=== PATIENT | male | born 1945 | race Caucasian/White ===

== ENCOUNTER 2018-01-10 06:51 | Inpatient (IN) | payer OTHER, MEDICARE ==
[~2018-01-10] VITALS: Ht 172.7 cm; Wt 67.5 kg
[~2018-01-10 06:51] MED LIST: ASPI81TA23 PO; ATOR80TA45 PO; HYDR25TA5 PO; LISI40TA PO; METF1000 PO; METO25TA3 PO
[2018-01-10] MEDS ORDERED: SODIUM CHLORID 0.9% 500 ML IV PRN (07:15)
[2018-01-10] MEDS ORDERED: CHLORHEXIDINE GLUCONATE 2 % 1 PACK (2 CLOTHS) TOPICAL PRN (07:15)
[2018-01-10] MEDS ORDERED: METOPROLOL TARTRATE 25 MG TAB PO PRN (07:15)
[2018-01-10] MEDS ORDERED: POVIDONE IODINE 5% (ANTISEPSIS KIT) 4 APPLICATIONS EACH NARE PRN (07:15)
[2018-01-10] MEDS: LACTATED RINGER'S 1000 ML IV PRN ×2 (08:02→13:05)
[2018-01-10 08:17] LABS: AUTOMATED NEUTROPHIL # 10.6 TH/MM3 (1.8-7.7); BASOPHIL # 0.2 TH/MM3 (0-0.2); BASOPHIL % 1.3 % (0.0-2.0); EOSINOPHIL # 0.6 TH/MM3 (0-0.4); HEMATOCRIT 38.3 % (39.0-51.0); LYMPH % 15.2 % (9.0-44.0); LYMPHOCYTE # 2.2 TH/MM3 (1.0-4.8); MEAN CELL VOLUME 88.5 FL (80.0-100.0); MEAN CORPUSCULAR HEMOGLOBIN 30.1 PG (27.0-34.0); MEAN CORPUSCULAR HGB CONC 34.1 % (32.0-36.0); MEAN PLATELET VOLUME 7.6 FL (7.0-11.0); MONO % 5.9 % (0.0-8.0); MONOCYTE # 0.9 TH/MM3 (0-0.9); NEUT % 73.6 % (16.0-70.0); PLATELET COUNT 276 TH/MM3 (150-450); RED BLOOD COUNT 4.33 MIL/MM3 (4.50-5.90); RED CELL DISTRIBUTION WIDTH 15.1 % (11.6-17.2); WHITE BLOOD COUNT 14.4 TH/MM3 (4.0-11.0)
[2018-01-10 08:22] LABS: PROTHROMBIN TIME - PATIENT 10.5 SEC (9.8-11.6)
[2018-01-10] MEDS ORDERED: PROTAMINE SULFATE 50 MG/5 ML VIAL ONE (08:24)
[2018-01-10] MEDS ORDERED: HEPARIN SODIUM - IV 10,000 UNITS/10 ML VIAL ONE (08:24)
[2018-01-10] MEDS ORDERED: THROMBIN (TOPICAL) 20,000 UNIT SPRAY KIT ONE (08:25)
[2018-01-10] MEDS ORDERED: HEPARIN-NS/PF INJ 500 ML ONE (08:25)
[2018-01-10] MEDS ORDERED: BUPIVACAINE HCL PF 0.5% 30 ML VIAL ONE (08:25)
[2018-01-10] MEDS ORDERED: ceFAZolin 2 GM PREMIX 50 ML ONE (08:25)
[2018-01-10 08:29] LABS: BICARBONATE 25.3 MEQ/L (21.0-32.0); CALCIUM 9.4 MG/DL (8.5-10.1); CREATININE 1.68 MG/DL (0.60-1.30)
--- NOTE | 2018-01-10 08:39 | HHI.HP ---
History of Present Illness Chief Complaint: B LE leg pain, PAD History of Present Illness 72 yo male with B LE leg pain, short claudication and near pain Past/Family/Social History Past Medical History CVOD DM HTN XOL PAD Past Surgical History ortho surgery Social History + tobacco Family History NC Home Medications Reported Medications Aspirin DR (Aspirin EC) 81 Mg Tabdr, 81 MG PO DAILY, TAB 0 Refills 01/07/18 Atorvastatin (Atorvastatin) 80 Mg Tab, 80 MG PO HS for Cholesterol Management, # 30 TAB 0 Refills 01/07/18 Hydrochlorothiazide (Hydrochlorothiazide) 25 Mg Tab, 25 MG PO DAILY, #30 TAB 0 Refills 01/07/18 Lisinopril (Lisinopril) 40 Mg Tab, 40 MG PO DAILY for Blood Pressure Management , #30 TAB 0 Refills 01/07/18 Metoprolol Tartrate (Metoprolol Tartrate) 25 Mg Tab, 0.5 TAB PO BID, #60 TAB 0 Refills 01/07/18 Metformin (Metformin) 1,000 Mg Tab, 1000 MG PO BIDPC for Blood Sugar Management , #60 TAB 0 Refills 01/07/18 Coded Allergies: acetaminophen (Verified Allergy, Severe, Rash, 01/10/18) Review of Systems Constitutional: DENIES: Diaphoretic episodes, Fatigue, Fever, Weight gain, Weight loss, Chills, Dizziness, Change in appetite, Night Sweats Respiratory: COMPLAINS OF: Wheezing Physical Exam Vitals/I&O Date Time Temp Pulse Resp B/P (MAP) Pulse Ox O2 Delivery O2 Flow Rate FiO2 01/10/18 08:01 97.6 81 18 146/85 (105) 100 Neuro: alert, oriented no distress HEENT: NC/AT Neck: no JVD Heart: reg rate Lungs: + wheezing Abdomen: nontender Vascular: palpable UE pulses Extremities: no C/C/E no tissue loss Laboratory Tests Test 01/10/18 07:57 White Blood Count 14.4 Red Blood Count 4.33 Hemoglobin 13.0 Hematocrit 38.3 Mean Corpuscular Volume 88.5 Mean Corpuscular Hemoglobin 30.1 Mean Corpuscular Hemoglobin Concent 34.1 Red Cell Distribution Width 15.1 Platelet Count 276 Mean Platelet Volume 7.6 Neutrophils (%) (Auto) 73.6 Lymphocytes (%) (Auto) 15.2 Monocytes (%) (Auto) 5.9 Eosinophils (%) (Auto) 4.0 Basophils (%) (Auto) 1.3 Neutrophils # (Auto) 10.6 Lymphocytes # (Auto) 2.2 Monocytes # (Auto) 0.9 Eosinophils # (Auto) 0.6 Basophils # (Auto) 0.2 CBC Comment DIFF FINAL Differential Comment Prothrombin Time 10.5 Prothromb Time International Ratio 1.0 Blood Urea Nitrogen 23 Creatinine 1.68 Random Glucose 132 Calcium Level 9.4 Sodium Level 141 Potassium Level 3.8 Chloride Level 104 Carbon Dioxide Level 25.3 Anion Gap 12 Estimat Glomerular Filtration Rate 40 CTA ([place]) reviewed Caprini VTE Risk Assessment Caprini VTE Risk Assessment: No/Low Risk (score <= 1) Caprini Risk Assessment Model Point Value = 1 Point Value = 2 Point Value = 3 Point Value = 5 Age 41-60 Minor surgery BMI > 25 kg/m2 Swollen legs Varicose veins or History of unexplained or recurrent spontaneous Oral contraceptives or hormone replacement Sepsis (< 1 month) Serious lung disease, including pneumonia (< 1 month) Abnormal pulmonary function Acute myocardial infarction Congestive heart failure (< 1 month) History of inflammatory bowel disease Medical patient at bed rest Age 61-74 Arthroscopic surgery Major open surgery (> 45 min) Laparoscopic surgery (> 45 min) Malignancy Confined to bed (> 72 hours) Immobilizing plaster cast Central venous access Age >= 75 History of VTE Family history of VTE Factor V Leiden Prothrombin [id number] Lupus anticoagulant Anticardiolipin antibodies Elevated serum homocysteine Heparin-induced thrombocytopenia Other congenital or acquired thrombophilia Stroke (< 1 month) Elective arthroplasty Hip, pelvis, or leg fracture Acute spinal cord injury (< 1 month) Prophylaxis Regimen Total Risk Factor Score Risk Level Prophylaxis Regimen 0-1 Low Early ambulation 2 Moderate Order ONE of the following: *Sequential Compression Device (SCD) *Heparin 5000 units SQ BID 3-4 Higher Order ONE of the following medications: *Heparin 5000 units SQ TID *Enoxaparin/Lovenox 40 mg SQ daily (WT < 150 kg, CrCl > 30 mL/min) *Enoxaparin/Lovenox 30 mg SQ daily (WT < 150 kg, CrCl > 10-29 mL/min) *Enoxaparin/Lovenox 30 mg SQ BID (WT < 150 kg, CrCl > 30 mL/min) AND/OR *Sequential Compression Device (SCD) 5 or more Highest Order ONE of the following medications: *Heparin 5000 units SQ TID (Preferred with Epidurals) *Enoxaparin/Lovenox 40 mg SQ daily (WT < 150 kg, CrCl > 30 mL/min) *Enoxaparin/Lovenox 30 mg SQ daily (WT < 150 kg, CrCl > 10-29 mL/min) *Enoxaparin/Lovenox 30 mg SQ BID (WT < 150 kg, CrCl > 30 mL/min) AND *Sequential Compression Device (SCD) Assessment and Plan Plan Ax-fem-fem Discharge Planning 3-4 days Son: [phone] Chase Tapia MD Jan 10, 2018 08:39
[2018-01-10] MEDS ORDERED: FAMOTIDINE 20 MG/2 ML VIAL ONE (08:50)
[2018-01-10] MEDS ORDERED: FAMOTIDINE 20 MG/2 ML VIAL IV ONE (08:52)
[2018-01-10] MEDS ORDERED: RESP: ALBUTEROL 2.5 MG/IPRATROPIUM 0.5 MG NEB (SCH) NEB ONE (08:55)
[2018-01-10] MEDS ORDERED: RESP: ALBUTEROL 2.5 MG/IPRATROPIUM 0.5 MG NEB (SCH) ONE (08:57)
--- NOTE | 2018-01-10 11:50 | HHI.PR ---
cc: Chase Tapia MD Immediate Post Op Note Procedure Date: Jan 10, 2018 Pre Op Diagnosis: PAD with short distance claudication Post Op Diagnosis: PAD with short distance claudication Surgeon: Chase Tapia Shipping Checker(s): Chase Steward Procedure: R ax-fem-fem (8mm ringed PTFE) Findings: strong Doppler signals B feet Additional Information: none Complications: none Specimen(s) removed: none Estimated blood loss: 300mL Anesthesia: General Drains: None Fluids: 2800mL IVF Urinary Output (mLs): 75 Patient to: CVICU Patient Condition: Good Implant/Devices: SEE IMPLANT LOG (if applicable) Date/Time of Procedure: SEE SURGICAL CARE RECORD Chase Tapia MD Jan 10, 2018 11:50
[2018-01-10 12:00] VITALS: BP_SYST 151; BP_SYST 156; BP_DIAS 63; BP_DIAS 68; PULSE 78; TEMP 97.5
[2018-01-10] MEDS ORDERED: ROCURONIUM INJ 50 MG/5 ML SYRINGE IV PUSH ONE (12:00)
[2018-01-10] MEDS ORDERED: ESMOLOL HCL 100 MG/10 ML VIAL IV ONE (12:00)
[2018-01-10] MEDS ORDERED: RESP: ALBUTEROL 2.5 MG/3 ML NEB (PRN) NEB (12:00)
[2018-01-10] MEDS ORDERED: NEOSTIGMINE 5 MG/5 ML SYRINGE IV PUSH ONE (12:00)
[2018-01-10] MEDS ORDERED: PHENYLEPH/NS 1000 MCG/10 ML SYR IV ONE (12:00)
[2018-01-10] MEDS ORDERED: SENNOSIDES 8.6 MG TAB PO PRN (12:00)
[2018-01-10] MEDS ORDERED: DEXAMETHASONE SOD PHOS 4 MG/ML VIAL IV ONE (12:00)
[2018-01-10] MEDS ORDERED: PROPOFOL 200 MG/20 ML AMP IV ONE (12:00)
[2018-01-10] MEDS ORDERED: ePHEDrine/NS 25 MG/5 ML SYRINGE IV ONE (12:00)
[2018-01-10] MEDS ORDERED: LIDOCAINE HCL 1% PF 5 ML SYRINGE OTHER ONE (12:00)
[2018-01-10] MEDS ORDERED: GLYCOPYRROLATE 1 MG/5 ML SYRINGE IV PUSH ONE (12:00)
[2018-01-10] MEDS ORDERED: PHENYLEPHRINE HCL 10 MG/ML VIAL IV ONE (12:00)
[2018-01-10] MEDS ORDERED: ONDANSETRON HCL 4 MG/2 ML VIAL IV ONE (12:00)
[2018-01-10] MEDS ORDERED: NORMOSOL R INJ 2,000 ML IV ONE (12:00)
[2018-01-10] MEDS ORDERED: DO NOT ADM ANY ANTICOAGULANT DRUGS PRN (12:07)
[2018-01-10] MEDS ORDERED: PILL SPLITTER OTHER PRN (12:30)
--- NOTE | 2018-01-10 12:54 | MP ---
cc: Chase Tapia MD DATE OF OPERATION: PREOPERATIVE DIAGNOSIS: Bilateral lower extremity peripheral arterial occlusive disease, short distance claudication, infrarenal aortic occlusion. POSTOPERATIVE DIAGNOSIS: Bilateral lower extremity peripheral arterial occlusive disease, short distance claudication, infrarenal aortic occlusion. PROCEDURE PERFORMED: Ax-fem, fem-fem. ATTENDING SURGEON: Chase Tapia MD [employer]ADU[employer] SURGEON: Chase Steward RN ANESTHESIA: General. INDICATIONS FOR PROCEDURE: Mr. Adams is a 72-year-old gentleman with a near aortic occlusion, occluded right iliac system and a high-grade left iliac stenosis. He was taken to the operating room for an extra anatomic vascularization. After thorough discussion of the risks and benefits was had with the patient. DESCRIPTION OF PROCEDURE: Informed consent was obtained, the patient was taken to the operating room and placed supine on the operating table. An appropriate timeout was taken to ensure the patient's identity, operative site and planned procedure. The administration of 2 grams of Ancef was initiated prior to skin incision and will be discontinued after single preoperative dose. Everyone in the room agreed. We proceeded. He was prepped from the chin to the knees. An incision was made in both the patient's groins, carried down through subcutaneous tissue with electrocautery. The common femoral artery was identified, dissected free from the circumflex, femoral all the way down to the bifurcation of the profunda and superficial femoral arteries. These were encircled with vessel loops. An incision made below the right collarbone, carried down through subcutaneous tissue with electrocautery. The axillary artery and vein were identified, and the axillary vein was retracted caudally, thereby providing adequate exposure of the axillary artery. It was encircled with a vessel loop. A tunnel was then created between the axillary incision and the groin incision, and an 8 mm ringed PTFE was passed through the tunnel. The patient was systemically heparinized until the remainder of the case. The ACT was confirmed to be greater than 250. Proximal and distal control of the axillary artery was obtained with profunda clamps, and a longitudinal arteriotomy was made with an 11 blade, extended with Jorge scissors. The graft was spatulated and sewn end-to-side with running 5-0 Prolene suture. At the completion, it was flushed and noted to be hemostatic. A [place] Softjaw was placed on the graft as the clamps were released. Proximal and distal control of the right common femoral artery was obtained with profunda clamps, and a longitudinal arteriotomy was made with an 11 blade, extended with [place] scissors. The graft was cut to appropriate length, spatulated and sewn end-to-side to the common femoral artery with a running 5-0 Prolene suture. At the completion, it was flushed and noted to be hemostatic. The clamps were reapplied and a graftotomy was made with an 11 blade, extended with Jorge scissors. An 8 mm PTFE was sewn end to side to the distal end of the ax-fem with running 5-0 Prolene suture. All the clamps were released. There was hemostasis in the groin. A subfascial tunnel was then created between the 2 groin incisions. An 8 mm ring PTFE was passed through this. Proximal and distal control of the left common femoral artery was obtained with profunda clamps, and a longitudinal arteriotomy was made with an 11 blade, extended with Jorge scissors. The graft was cut to appropriate length, spatulated and sewn end-to-side to the common femoral on the left with running 5-0 Prolene suture. At the completion, it was flushed and noted to be hemostatic. There were excellent Doppler signals in the feet. All the wounds were made hemostatic. The heparin was reversed with protamine and the wounds were infiltrated with Marcaine and closed with 2-0 Polysorb, 3-0 Polysorb and 4-0 Monocryl. Sponge and needle counts were correct at the end of the case. I was present and scrubbed for the entire procedure. MD JAGDISH Dia/SHEEBA , 12:13 PM , 12:54 PM
[2018-01-10 14:29] VITALS: O2SAT 97
[2018-01-10 15:00] VITALS: BP_SYST 130; BP_SYST 132; BP_DIAS 50; BP_DIAS 74; PULSE 78; TEMP 98
[2018-01-10 19:00] VITALS: BP_SYST 130; BP_SYST 136; BP_DIAS 48; BP_DIAS 78; PULSE 120; RESP 20; TEMP 97.9; O2SAT 94
--- NOTE | 2018-01-10 20:46 | EKG ---
Date Performed: 01/10/2018 Time Performed: 07:41:30 PTAGE: 72 years EKG: Sinus rhythm INTRAVENTRICULAR CONDUCTION DELAY ABNORMAL ECG NO PREVIOUS TRACING DOCTOR: Carlos Carrasquillo Interpretating Date/Time 01/10/2018 20:46:02
[2018-01-10] MEDS: DOCUSATE SODIUM 50 MG/SENNA 8.6 MG TAB PO SCH ×2 (21:00→21:04)
[2018-01-10] MEDS: ATORVASTATIN 40 MG TAB PO SCH (21:04)
[2018-01-10] MEDS: FAMOTIDINE 20 MG TAB PO SCH (21:05)
[2018-01-10] MEDS: METOPROLOL TARTRATE 25 MG TAB PO SCH (21:05)
[2018-01-10 22:35] VITALS: O2SAT 97
[2018-01-10 23:00] VITALS: BP_SYST 129; BP_SYST 139; BP_DIAS 57; BP_DIAS 74; PULSE 100; RESP 20; TEMP 97.9; O2SAT 98
[2018-01-10] MEDS: MORPHINE SULFATE 4 MG/ML INJ IV PUSH PRN (23:06)
[2018-01-11] VITALS (7 sets, daily range): BP systolic 106–122; BP diastolic 49–75; PULSE 80–121; RESP 18–24; TEMP 97.8–100.4; O2SAT 94–99
[2018-01-11] MEDS: MORPHINE SULFATE 4 MG/ML INJ IV PUSH PRN ×3 (04:43→20:44)
[2018-01-11 05:12] LABS: HEMATOCRIT 27.3 % (39.0-51.0); HEMOGLOBIN 9.6 GM/DL (13.0-17.0); MEAN CELL VOLUME 86.5 FL (80.0-100.0); MEAN CORPUSCULAR HEMOGLOBIN 30.4 PG (27.0-34.0); MEAN CORPUSCULAR HGB CONC 35.1 % (32.0-36.0); PLATELET COUNT 228 TH/MM3 (150-450); RED BLOOD COUNT 3.16 MIL/MM3 (4.50-5.90)
[2018-01-11 05:54] LABS: CALCIUM 7.9 MG/DL (8.5-10.1); CREATININE 1.51 MG/DL (0.60-1.30)
--- NOTE | 2018-01-11 08:50 | PD.VS.PN ---
Subjective POD #: 1 Procedure(s): ax-fem-fem Subjective/Hospital Course c/o soreness christiano in sides otherwise ok feet ok deisy po no abdominal tenderness Objective Vitals/I&O Date Time Temp Pulse Resp B/P (MAP) Pulse Ox O2 Delivery O2 Flow Rate FiO2 01/11/18 07:59 96 Nasal Cannula 2.00 01/11/18 07:00 98.5 95 18 106/56 (73) 97 115/50 (71) 01/11/18 07:00 97 Nasal Cannula 4.00 01/11/18 07:00 95 01/11/18 05:57 20 01/11/18 04:48 20 01/11/18 03:00 80 01/11/18 03:00 98.1 80 20 109/62 (78) 99 122/49 (73) 01/10/18 23:00 97.9 100 20 129/74 (92) 98 139/57 (84) 01/10/18 23:00 100 01/10/18 22:35 97 Nasal Cannula 2.00 01/10/18 19:00 120 01/10/18 19:00 94 Nasal Cannula 4.00 01/10/18 19:00 97.9 120 20 136/78 (97) 94 130/48 (75) 01/10/18 15:00 98.0 78 132/74 (93) 130/50 (76) 01/10/18 15:00 78 01/10/18 14:29 97 Nasal Cannula 4.00 01/10/18 12:00 97.5 78 151/68 (95) 156/63 (94) 01/11/18 01/11/18 01/11/18 07:00 15:00 23:00 Intake Total 600 ml Output Total 770 ml Balance -170 ml Exam: resting comfortably abdomen soft R axilla soft and groins soft Prevena's in place Pulses: palpable L PT and strong Doppler R pedal signals Laboratory Laboratory Tests Test 01/11/18 04:20 White Blood Count 16.0 Red Blood Count 3.16 Hemoglobin 9.6 Hematocrit 27.3 Mean Corpuscular Volume 86.5 Mean Corpuscular Hemoglobin 30.4 Mean Corpuscular Hemoglobin Concent 35.1 Red Cell Distribution Width 15.0 Platelet Count 228 Mean Platelet Volume 8.0 Blood Urea Nitrogen 20 Creatinine 1.51 Random Glucose 145 Calcium Level 7.9 Sodium Level 139 Potassium Level 4.2 Chloride Level 104 Carbon Dioxide Level 25.0 Anion Gap 10 Estimat Glomerular Filtration Rate 46 Assessment and Plan Plan POD#1 s/p ax-fem-fem; good perfusion 1. D/C A-line 2. Can transfer to CPCU (boarding in CVICU now) 3. D/C [place] 4. Reg diet 5. Continue pulse checks 6. OOB/PT Discharge Planning 3 days, potentially to rehab case management consulted yesterday and PT consulted Son: [phone] ReginaChase Womack MD January 11, 2018 08:50
[2018-01-11] MEDS: HYDROmorphone HCL 2 MG TAB PO PRN ×3 (08:58→23:39)
[2018-01-11] MEDS: HYDROCHLOROTHIAZIDE 25 MG TAB PO SCH (08:59)
[2018-01-11] MEDS: ASPIRIN 81 MG CHEW TAB PO SCH (08:59)
[2018-01-11] MEDS: FAMOTIDINE 20 MG TAB PO SCH ×2 (08:59→20:41)
[2018-01-11] MEDS: LISINOPRIL 20 MG TAB PO SCH (09:00)
[2018-01-11] MEDS: DOCUSATE SODIUM 50 MG/SENNA 8.6 MG TAB PO SCH ×2 (09:00→20:41)
[2018-01-11] MEDS: METOPROLOL TARTRATE 25 MG TAB PO SCH ×2 (09:00→20:42)
[2018-01-11] MEDS: ENOXAPARIN SODIUM 30 MG/0.3 ML SYRINGE SQ SCH (10:59)
[2018-01-11] MEDS ORDERED: SODIUM CHLOR 0.9% 1000 ML INJ 1,000 ML IV ONE (18:30)
[2018-01-11] MEDS: ATORVASTATIN 40 MG TAB PO SCH (20:38)
[2018-01-12] VITALS (18 sets, daily range): BP systolic 102–134; BP diastolic 56–66; PULSE 102–130; RESP 18–22; TEMP 97.9–99.2; O2SAT 94–96
[2018-01-12] MEDS: MORPHINE SULFATE 4 MG/ML INJ IV PUSH PRN ×3 (02:06→16:57)
[2018-01-12] MEDS ORDERED: SODIUM CHLOR 0.9% 1000 ML INJ 1,000 ML IV ONE (04:45)
--- NOTE | 2018-01-12 04:47 | PD.VS.PN ---
Subjective POD #: 2 Procedure(s): ax-fem-fem Subjective/Hospital Course c/o soreness christiano in sides no SOB persistently tachy and marginal UOP Objective Vitals/I&O Date Time Temp Pulse Resp B/P (MAP) Pulse Ox O2 Delivery O2 Flow Rate FiO2 01/12/18 00:00 122 01/12/18 00:00 98.8 108 22 119/66 (83) 94 01/11/18 20:00 99.7 115 24 117/70 (86) 94 01/11/18 20:00 94 Nasal Cannula 2.00 01/11/18 19:00 95 Nasal Cannula 2.00 01/11/18 19:00 22 01/11/18 19:00 105 01/11/18 15:00 100.4 108 20 116/50 (72) 97 01/11/18 15:00 108 01/11/18 11:00 121 01/11/18 11:00 97.8 121 20 118/75 (89) 97 Arterial Line 01/11/18 07:59 96 Nasal Cannula 2.00 01/11/18 07:00 98.5 95 18 106/56 (73) 97 115/50 (71) 01/11/18 07:00 97 Nasal Cannula 4.00 01/11/18 07:00 95 01/11/18 05:57 20 01/11/18 04:48 20 Exam: resting comfortably mild TTP R flank Incisions: R axillary incision ok B groins soft Laboratory pending Assessment and Plan Plan POD#2 s/p ax-fem-fem; good perfusion 1. OOB/PT 2. Reg diet 3. IVF bolus and resume MIVF, likely intravascularly dehydrated; follow UOP 4. Can transfer to CPCU (boarding in CVICU now) 5. f/u AML Discharge Planning 2-3 days, potentially to rehab case management consulted yesterday and PT consulted Son: [phone] Chase Tapia MD January 12, 2018 04:47
[2018-01-12 05:16] LABS: HEMATOCRIT 29.1 % (39.0-51.0); HEMOGLOBIN 10.1 GM/DL (13.0-17.0); MEAN CELL VOLUME 88.4 FL (80.0-100.0); MEAN CORPUSCULAR HEMOGLOBIN 30.7 PG (27.0-34.0); MEAN CORPUSCULAR HGB CONC 34.7 % (32.0-36.0); MEAN PLATELET VOLUME 8.3 FL (7.0-11.0); PLATELET COUNT 202 TH/MM3 (150-450); RED CELL DISTRIBUTION WIDTH 15.4 % (11.6-17.2); WHITE BLOOD COUNT 19.2 TH/MM3 (4.0-11.0)
[2018-01-12 05:41] LABS: CALCIUM 8.2 MG/DL (8.5-10.1); CREATININE 1.65 MG/DL (0.60-1.30)
[2018-01-12] MEDS: LACTATED RINGER'S 1000 ML INJ 1,000 ML IV SCH ×2 (05:51→15:12)
[2018-01-12] MEDS: HYDROmorphone HCL 2 MG TAB PO PRN ×4 (07:36→20:48)
[2018-01-12] MEDS: DOCUSATE SODIUM 50 MG/SENNA 8.6 MG TAB PO SCH ×2 (08:38→20:47)
[2018-01-12] MEDS: HYDROCHLOROTHIAZIDE 25 MG TAB PO SCH (08:38)
[2018-01-12] MEDS: METOPROLOL TARTRATE 25 MG TAB PO SCH ×2 (08:38→17:59)
[2018-01-12] MEDS: FAMOTIDINE 20 MG TAB PO SCH ×2 (08:39→20:48)
[2018-01-12] MEDS: LISINOPRIL 20 MG TAB PO SCH (08:39)
[2018-01-12] MEDS: ASPIRIN 81 MG CHEW TAB PO SCH (08:39)
[2018-01-12] MEDS: ENOXAPARIN SODIUM 30 MG/0.3 ML SYRINGE SQ SCH (10:28)
[2018-01-12] MEDS ORDERED: METOPROLOL TARTRATE 25 MG TAB PO ONE (18:30)
[2018-01-12] MEDS ORDERED: PILL SPLITTER OTHER PRN (18:30)
[2018-01-12] MEDS: ATORVASTATIN 40 MG TAB PO SCH (20:47)
[2018-01-13] VITALS (21 sets, daily range): BP systolic 110–149; BP diastolic 64–73; PULSE 100–122; RESP 16–20; TEMP 97.9–98.9; O2SAT 93–98
[2018-01-13] MEDS: HYDROmorphone HCL 2 MG TAB PO PRN ×5 (01:14→21:49)
[2018-01-13] MEDS: MORPHINE SULFATE 4 MG/ML INJ IV PUSH PRN ×2 (02:04→03:31)
[2018-01-13] MEDS: LACTATED RINGER'S 1000 ML INJ 1,000 ML IV SCH (04:35)
[2018-01-13] MEDS: LISINOPRIL 20 MG TAB PO SCH (08:07)
[2018-01-13] MEDS: METOPROLOL TARTRATE 25 MG TAB PO SCH ×2 (08:07→21:50)
[2018-01-13] MEDS: ASPIRIN 81 MG CHEW TAB PO SCH (08:07)
[2018-01-13] MEDS: FAMOTIDINE 20 MG TAB PO SCH ×2 (08:07→21:50)
[2018-01-13] MEDS: HYDROCHLOROTHIAZIDE 25 MG TAB PO SCH (08:07)
[2018-01-13] MEDS: DOCUSATE SODIUM 50 MG/SENNA 8.6 MG TAB PO SCH ×2 (08:10→21:00)
[2018-01-13] MEDS: ONDANSETRON HCL 4 MG/2 ML VIAL IV PUSH PRN (08:47)
--- NOTE | 2018-01-13 10:19 | PD.VS.PN ---
Subjective POD #: 3 Procedure(s): ax-fem-fem Subjective/Hospital Course 72/M Pt S/P ax-fem-fem POD 3 Pt c/o nausea w/o vomiting this am Pt denied abdominal/chest pain or SOB Pt continues to c/o soreness christiano in sides Objective Vitals/I&O Date Time Temp Pulse Resp B/P (MAP) Pulse Ox O2 Delivery O2 Flow Rate FiO2 01/13/18 08:00 122 01/13/18 07:00 104 01/13/18 07:00 96 Room Air 01/13/18 07:00 98.1 110 20 149/73 (98) 96 01/13/18 06:00 106 01/13/18 05:00 112 01/13/18 04:00 100 01/13/18 03:36 20 01/13/18 03:00 97.9 100 20 145/71 (95) 97 01/13/18 03:00 100 01/13/18 02:14 20 01/13/18 02:00 108 01/13/18 01:00 102 01/13/18 00:00 104 01/12/18 23:59 20 01/12/18 23:00 97.9 111 20 107/63 (78) 94 01/12/18 23:00 111 01/12/18 22:00 104 01/12/18 21:26 21 01/12/18 21:00 102 01/12/18 20:00 102 01/12/18 19:00 120 01/12/18 19:00 99.2 120 20 102/57 (72) 96 01/12/18 19:00 96 Room Air 01/12/18 18:06 127 01/12/18 17:03 130 01/12/18 16:14 120 01/12/18 15:11 108 01/12/18 15:11 98.2 110 18 115/56 (75) 94 01/12/18 14:22 109 01/12/18 13:01 117 01/12/18 12:11 127 01/12/18 11:28 98.1 122 18 129/61 (83) 96 01/12/18 11:28 103 01/12/18 10:09 103 01/13/18 01/13/18 01/13/18 07:00 15:00 23:00 Intake Total 1248 ml 164 ml Output Total 600 ml Balance 648 ml 164 ml Exam: GENERAL: Afebrile 72/M A&OX3,NAD,GCS 15 SKIN: LE Warm and dry w/ motor intact CARDIOVASCULAR: RRR/+S1,S2 RESPIRATORY: BS CTA/ No accessory muscle use GASTROINTESTINAL: Abdomen S/NT, BS present/+ flatulence MUSCULOSKELETAL: No cyanosis, or edema. Pulses: Multiphasic R/L DP/PT signals heard via Doppler Incisions: Bilat groins w/ Prevena wound vac's No hematoma or swelling noted Right Chest incision intact w/o R/D/S/O Laboratory Laboratory Tests Test 01/12/18 03:30 White Blood Count 19.2 TH/MM3 Red Blood Count 3.30 MIL/MM3 Hemoglobin 10.1 GM/DL Hematocrit 29.1 % Mean Corpuscular Volume 88.4 FL Mean Corpuscular Hemoglobin 30.7 PG Mean Corpuscular Hemoglobin Concent 34.7 % Red Cell Distribution Width 15.4 % Platelet Count 202 TH/MM3 Mean Platelet Volume 8.3 FL Blood Urea Nitrogen 22 MG/DL Creatinine 1.65 MG/DL Random Glucose 144 MG/DL Calcium Level 8.2 MG/DL Sodium Level 138 MEQ/L Potassium Level 3.9 MEQ/L Chloride Level 103 MEQ/L Carbon Dioxide Level 26.0 MEQ/L Anion Gap 9 MEQ/L Estimat Glomerular Filtration Rate 41 ML/MIN Assessment and Plan Plan 72/M POD 3 s/p ax-fem-fem Pt continues w/ good perfusion LE warm with motor intact Pt does however c/o nausea Pt w/o CP/SOB/Abdominal pain No BM noted Plan Ordered antiemetic for nausea- to be given PRN Continue w/ stool softeners/Magnesium Hydroxide Continue w/ PT/OOB and ambulate D/C planning 1-2 days to Rehab Continue to monitor UOP Alla Caputo IMM[employer]RATION OFFICER [facility] [phone] Discharge Planning 2-3 days, potentially to rehab case management consulted yesterday and PT consulted Son: [phone] Alla Caputo January 13, 2018 10:19
[2018-01-13] MEDS: ENOXAPARIN SODIUM 30 MG/0.3 ML SYRINGE SQ SCH (10:45)
[2018-01-13] MEDS: MAGNESIUM HYDROXIDE SUSP 30 ML CUP PO PRN (15:57)
[2018-01-13] MEDS: ATORVASTATIN 40 MG TAB PO SCH (21:49)
[2018-01-14] VITALS (16 sets, daily range): BP systolic 114–140; BP diastolic 63–82; PULSE 98–118; RESP 16–18; TEMP 98–98.9; O2SAT 91–93
[2018-01-14] MEDS: HYDROmorphone HCL 2 MG TAB PO PRN (03:56)
--- NOTE | 2018-01-14 07:40 | PD.VS.PN ---
Subjective POD #: 4 Procedure(s): ax-fem-fem Subjective/Hospital Course POD#4 + anorexia but no emesis; deisy some po Pain better feet ok has been ambulating. Objective Vitals/I&O Date Time Temp Pulse Resp B/P (MAP) Pulse Ox O2 Delivery O2 Flow Rate FiO2 01/14/18 05:31 16 01/14/18 03:00 101 01/14/18 03:00 98.4 100 18 130/70 (90) 93 01/13/18 23:00 98.6 109 16 118/71 (87) 93 01/13/18 23:00 93 Room Air 01/13/18 23:00 101 01/13/18 19:00 95 Room Air 01/13/18 19:00 109 01/13/18 19:00 98.9 113 16 115/70 (85) 95 01/13/18 18:00 106 01/13/18 17:00 107 01/13/18 16:00 109 01/13/18 15:00 103 01/13/18 15:00 98.1 104 18 110/64 (79) 98 01/13/18 14:00 102 01/13/18 13:00 100 01/13/18 12:00 102 01/13/18 11:00 105 01/13/18 11:00 97.9 106 20 139/65 (89) 95 01/13/18 10:00 105 01/13/18 09:00 110 01/13/18 08:00 122 01/14/18 01/14/18 01/14/18 07:00 15:00 23:00 Intake Total 240 ml Output Total 100 ml Balance 140 ml Exam: resting comfortably feet warm Prevenas removed today - incisions all look good groins soft Pulses: palpable R pedal pulse; warm LEFT foot Assessment and Plan Plan POD#4 s/p ax-fem-fem 1. Normalize 2. OOB/PT 3. Encourage po 4. could go to rehab today Discharge Planning potentially to rehab today Son: [phone] Chase Tapia MD January 14, 2018 07:40
[2018-01-14] MEDS: METOPROLOL TARTRATE 25 MG TAB PO SCH ×2 (09:46→20:27)
[2018-01-14] MEDS: ASPIRIN 81 MG CHEW TAB PO SCH (09:46)
[2018-01-14] MEDS: LISINOPRIL 20 MG TAB PO SCH (09:46)
[2018-01-14] MEDS: FAMOTIDINE 20 MG TAB PO SCH ×2 (09:47→20:26)
[2018-01-14] MEDS: DOCUSATE SODIUM 50 MG/SENNA 8.6 MG TAB PO SCH ×2 (09:47→20:26)
[2018-01-14] MEDS: HYDROCHLOROTHIAZIDE 25 MG TAB PO SCH (09:47)
[2018-01-14] MEDS: ENOXAPARIN SODIUM 30 MG/0.3 ML SYRINGE SQ SCH (11:00)
[2018-01-14] MEDS: ONDANSETRON HCL 4 MG/2 ML VIAL IV PUSH PRN ×2 (13:28→20:51)
[2018-01-14] MEDS: ATORVASTATIN 40 MG TAB PO SCH (20:26)
[2018-01-15] VITALS (18 sets, daily range): BP systolic 116–146; BP diastolic 56–68; PULSE 62–116; RESP 16–20; TEMP 97.8–98.5; O2SAT 93–95
[2018-01-15] MEDS: FAMOTIDINE 20 MG TAB PO SCH ×2 (09:01→20:45)
[2018-01-15] MEDS: DOCUSATE SODIUM 50 MG/SENNA 8.6 MG TAB PO SCH ×2 (09:01→20:46)
[2018-01-15] MEDS: METOPROLOL TARTRATE 25 MG TAB PO SCH ×2 (09:01→20:45)
[2018-01-15] MEDS: HYDROCHLOROTHIAZIDE 25 MG TAB PO SCH (09:01)
[2018-01-15] MEDS: ASPIRIN 81 MG CHEW TAB PO SCH (09:02)
[2018-01-15] MEDS: LISINOPRIL 20 MG TAB PO SCH (09:02)
--- NOTE | 2018-01-15 09:36 | PD.VS.PN ---
Subjective POD #: 5 Procedure(s): ax-fem-fem Subjective/Hospital Course POD#\5 better appetite working with PT Objective Vitals/I&O Date Time Temp Pulse Resp B/P (MAP) Pulse Ox O2 Delivery O2 Flow Rate FiO2 01/15/18 03:00 98.4 106 16 130/61 (84) 95 01/15/18 03:00 91 01/14/18 23:00 98.5 103 18 125/64 (84) 91 01/14/18 23:00 98 01/14/18 19:00 Room Air 01/14/18 19:00 111 01/14/18 19:00 98.9 109 16 135/66 (89) 92 01/14/18 18:00 106 01/14/18 17:00 109 01/14/18 15:13 98.0 100 18 140/82 (101) 01/14/18 15:00 106 01/14/18 14:00 104 01/14/18 13:00 114 01/14/18 12:00 112 01/14/18 11:02 98.2 105 18 126/73 (90) 01/14/18 11:00 104 01/14/18 10:00 106 01/15/18 01/15/18 01/15/18 07:00 15:00 23:00 Intake Total 400 ml Balance 400 ml Exam: no distress feet warm fullness R flank stable axillary incision ok groins ok Assessment and Plan Plan POD#5 s/p ax-fem-fem 1. OOB/PT 2. Encourage po 3. since no rehab, will plan for home Wednesday Discharge Planning HOME Wednesday Son: [phone] Chase Tapia MD January 15, 2018 09:36
[2018-01-15] MEDS: ENOXAPARIN SODIUM 30 MG/0.3 ML SYRINGE SQ SCH (12:05)
[2018-01-15] MEDS: LACTULOSE SYRUP 20 GM/30 ML CUP PO PRN (12:17)
[2018-01-15] MEDS: MAGNESIUM HYDROXIDE SUSP 30 ML CUP PO PRN (12:17)
[2018-01-15] MEDS: BISACODYL 10 MG SUPP RECTAL PRN (17:33)
[2018-01-15] MEDS: ATORVASTATIN 40 MG TAB PO SCH (20:45)
[2018-01-15] MEDS: ONDANSETRON HCL 4 MG/2 ML VIAL IV PUSH PRN (22:14)
[2018-01-16] VITALS (27 sets, daily range): BP systolic 87–155; BP diastolic 50–71; PULSE 60–109; TEMP 97.6–98.6; O2SAT 91–95
[2018-01-16] MEDS: ONDANSETRON HCL 4 MG/2 ML VIAL IV PUSH PRN ×2 (05:25→12:40)
[2018-01-16] MEDS: FAMOTIDINE 20 MG TAB PO SCH (07:31)
[2018-01-16] MEDS: HYDROCHLOROTHIAZIDE 25 MG TAB PO SCH (07:31)
[2018-01-16] MEDS: DOCUSATE SODIUM 50 MG/SENNA 8.6 MG TAB PO SCH ×2 (07:31→21:24)
[2018-01-16] MEDS: LISINOPRIL 20 MG TAB PO SCH (07:32)
[2018-01-16] MEDS: ASPIRIN 81 MG CHEW TAB PO SCH (07:32)
[2018-01-16] MEDS: METOPROLOL TARTRATE 25 MG TAB PO SCH ×2 (07:32→20:20)
--- NOTE | 2018-01-16 07:32 | PD.VS.PN ---
Subjective POD #: 6 Procedure(s): ax-fem-fem Subjective/Hospital Course continues to get stronger feet feel great when he walks deisy po voiding Objective Vitals/I&O Date Time Temp Pulse Resp B/P (MAP) Pulse Ox O2 Delivery O2 Flow Rate FiO2 01/16/18 06:08 102 01/16/18 05:08 69 01/16/18 05:05 98.0 61 155/71 (99) 93 01/16/18 04:01 103 01/16/18 03:21 99 01/16/18 02:40 99 01/16/18 01:14 100 01/16/18 00:38 98 01/16/18 00:00 97.9 84 125/63 (83) 92 01/15/18 23:00 84 01/15/18 22:20 116 01/15/18 22:03 21 01/15/18 21:00 111 01/15/18 20:00 66 01/15/18 19:00 68 01/15/18 19:00 93 Room Air 01/15/18 19:00 98.5 68 146/68 (94) 93 01/15/18 18:00 109 01/15/18 17:00 104 01/15/18 16:00 110 01/15/18 15:00 105 01/15/18 15:00 98.2 99 20 116/56 (76) 94 01/15/18 14:00 107 01/15/18 13:00 98 01/15/18 12:00 104 01/15/18 11:00 97.8 62 19 132/58 (82) 93 01/15/18 11:00 93 01/15/18 10:00 92 01/15/18 09:00 114 01/15/18 08:00 110 01/16/18 01/16/18 01/16/18 07:00 15:00 23:00 Intake Total 600 ml Output Total 450 ml Balance 150 ml Exam: incisions c/d/i moderate fullness r flank, stable feet warm Assessment and Plan Plan POD#6 s/p ax-fem-fem 1. OOB/PT 2. Encourage po 3. since no rehab, will plan for home Wednesday Discharge Planning HOME Wednesday Son: [phone] Chase Tapia MD January 16, 2018 07:32
[2018-01-16] MEDS: LACTULOSE SYRUP 20 GM/30 ML CUP PO PRN (08:43)
[2018-01-16] MEDS: PANTOPRAZOLE SOD 40 MG DELAYED RELEASE TAB PO SCH (09:35)
[2018-01-16] MEDS: MAGNESIUM HYDROXIDE SUSP 30 ML CUP PO PRN (11:20)
[2018-01-16] MEDS: ENOXAPARIN SODIUM 30 MG/0.3 ML SYRINGE SQ SCH (11:20)
[2018-01-16] MEDS: BISACODYL 10 MG SUPP RECTAL PRN (12:41)
[2018-01-16] MEDS ORDERED: SOD PHOSPHATE/SOD BIPHOSPHATE (ADULT) ENEMA 133ML RECTAL ONE (15:00)
--- NOTE | 2018-01-16 16:53 | RADRPT ---
EXAM DATE/TIME: 01/16/2018 16:31 [place] COMPARISON: No previous studies available for comparison. INDICATIONS : Abdominal distention and pain. Patient states he has not had a bowel movement in five days. MEDICAL HISTORY : SURGICAL HISTORY : None. ENCOUNTER: Subsequent ACUITY: 4 - 6 days PAIN SCORE: 5/10 LOCATION: Abdomen. FINDINGS: Air-filled loops of small and large bowel are noted suggesting diffuse ileus. Clinical correlation is recommended. No free intraperitoneal air is noted. No abnormal calcifications are noted. Mild degene rative changes and scoliosis of the lumbar spine are noted. CONCLUSION: 1. Air-filled loops of small and large bowel suggesting possible diffuse ileus. Clinical correlation is recommended. 2. Mild degenerative changes and scoliosis of the lumbar spine. Chase Iqbal MD on January 16, 2018 at 16:49 Board Certified Radiologist. This report was verified electronically.
[2018-01-16] MEDS: LACTATED RINGER'S 1000 ML INJ 1,000 ML IV SCH (16:56)
[2018-01-16 18:02] LABS: AUTOMATED NEUTROPHIL # 8.3 TH/MM3 (1.8-7.7); BASOPHIL % 0.4 % (0.0-2.0); EOSINOPHIL # 0.1 TH/MM3 (0-0.4); EOSINOPHIL % 0.5 % (0.0-4.0); HEMATOCRIT 29.3 % (39.0-51.0); HEMOGLOBIN 10.1 GM/DL (13.0-17.0); LYMPH % 5.5 % (9.0-44.0); LYMPHOCYTE # 0.5 TH/MM3 (1.0-4.8); MEAN CELL VOLUME 88.8 FL (80.0-100.0); MEAN CORPUSCULAR HEMOGLOBIN 30.8 PG (27.0-34.0); MEAN CORPUSCULAR HGB CONC 34.6 % (32.0-36.0); MEAN PLATELET VOLUME 8.2 FL (7.0-11.0); MONO % 10.6 % (0.0-8.0); MONOCYTE # 1.1 TH/MM3 (0-0.9); PLATELET COUNT 343 TH/MM3 (150-450); RED CELL DISTRIBUTION WIDTH 14.8 % (11.6-17.2)
[2018-01-16 18:24] LABS: BICARBONATE 31.2 MEQ/L (21.0-32.0); CALCIUM 9.1 MG/DL (8.5-10.1); CREATININE 2.32 MG/DL (0.60-1.30)
[2018-01-16] MEDS: ATORVASTATIN 40 MG TAB PO SCH (20:20)
[2018-01-17] VITALS (29 sets, daily range): BP systolic 95–135; BP diastolic 52–63; PULSE 60–112; RESP 16–20; TEMP 97.4–98.3; O2SAT 94–97
[2018-01-17] MEDS: LACTATED RINGER'S 1000 ML INJ 1,000 ML IV SCH ×2 (02:13→17:06)
[2018-01-17 04:07] LABS: HEMATOCRIT 24.8 % (39.0-51.0); HEMOGLOBIN 8.6 GM/DL (13.0-17.0); MEAN CELL VOLUME 88.4 FL (80.0-100.0); MEAN CORPUSCULAR HEMOGLOBIN 30.8 PG (27.0-34.0); MEAN CORPUSCULAR HGB CONC 34.8 % (32.0-36.0); PLATELET COUNT 275 TH/MM3 (150-450); RED CELL DISTRIBUTION WIDTH 14.9 % (11.6-17.2); WHITE BLOOD COUNT 7.3 TH/MM3 (4.0-11.0)
[2018-01-17 04:29] LABS: BICARBONATE 30.1 MEQ/L (21.0-32.0); CALCIUM 8.4 MG/DL (8.5-10.1); CREATININE 2.23 MG/DL (0.60-1.30)
[2018-01-17] MEDS: DOCUSATE SODIUM 50 MG/SENNA 8.6 MG TAB PO SCH ×2 (08:57→21:21)
[2018-01-17] MEDS: LISINOPRIL 20 MG TAB PO SCH (08:57)
[2018-01-17] MEDS: METOPROLOL TARTRATE 25 MG TAB PO SCH ×2 (08:57→21:21)
[2018-01-17] MEDS: HYDROCHLOROTHIAZIDE 25 MG TAB PO SCH (08:57)
[2018-01-17] MEDS: PANTOPRAZOLE SOD 40 MG DELAYED RELEASE TAB PO SCH (08:58)
[2018-01-17] MEDS: ASPIRIN 81 MG CHEW TAB PO SCH (08:58)
--- NOTE | 2018-01-17 09:13 | PD.VS.PN ---
Subjective POD #: 7 Procedure(s): ax-fem-fem Subjective/Hospital Course continues to ambulate with PT + emesis yesterday and KUB c/w ileus; e'lytes suggest significant dehydration + flatus today no abdominal pain Objective Vitals/I&O Date Time Temp Pulse Resp B/P (MAP) Pulse Ox O2 Delivery O2 Flow Rate FiO2 01/17/18 07:34 97.8 97 20 104/55 (71) 94 01/17/18 07:00 92 01/17/18 06:04 98 01/17/18 05:10 109 01/17/18 04:48 97.8 102 120/58 (78) 95 01/17/18 04:00 60 01/17/18 03:05 102 01/17/18 02:15 100 01/17/18 01:19 110 01/17/18 00:10 107 01/16/18 23:55 98.3 60 87/50 (62) 91 01/16/18 23:00 99 01/16/18 22:17 100 01/16/18 21:00 94 01/16/18 20:00 109 01/16/18 19:00 97.6 66 105/52 (69) 92 01/16/18 19:00 108 01/16/18 18:00 106 01/16/18 17:00 98 01/16/18 16:00 106 01/16/18 15:00 98.6 97 104/66 (79) 95 01/16/18 15:00 97 01/16/18 14:02 104 01/16/18 13:00 96 01/16/18 12:00 94 01/16/18 11:00 91 01/16/18 11:00 98.1 86 125/70 (88) 93 01/16/18 10:00 96 01/17/18 01/17/18 01/17/18 07:00 15:00 23:00 Intake Total 1312 ml Output Total 650 ml Balance 662 ml Exam: resting comfortably feet warm incisions ok abdomen non tender and not distended Laboratory Laboratory Tests Test 01/16/18 17:11 01/17/18 03:54 White Blood Count 10.0 7.3 Red Blood Count 3.30 2.80 Hemoglobin 10.1 8.6 Hematocrit 29.3 24.8 Mean Corpuscular Volume 88.8 88.4 Mean Corpuscular Hemoglobin 30.8 30.8 Mean Corpuscular Hemoglobin Concent 34.6 34.8 Red Cell Distribution Width 14.8 14.9 Platelet Count 343 275 Mean Platelet Volume 8.2 8.0 Neutrophils (%) (Auto) 83.0 Lymphocytes (%) (Auto) 5.5 Monocytes (%) (Auto) 10.6 Eosinophils (%) (Auto) 0.5 Basophils (%) (Auto) 0.4 Neutrophils # (Auto) 8.3 Lymphocytes # (Auto) 0.5 Monocytes # (Auto) 1.1 Eosinophils # (Auto) 0.1 Basophils # (Auto) 0.0 CBC Comment DIFF FINAL Differential Comment Blood Urea Nitrogen 51 57 Creatinine 2.32 2.23 Random Glucose 191 158 Calcium Level 9.1 8.4 Sodium Level 137 140 Potassium Level 3.6 3.7 Chloride Level 96 102 Carbon Dioxide Level 31.2 30.1 Anion Gap 10 8 Estimat Glomerular Filtration Rate 28 29 Assessment and Plan Plan POD#7 s/p ax-fem-fem 1. from vascular standpoint, looks great and feet ok; ambulating; incisions ok 2. Ileus with intravascular dehydration; continue MIVF; since passing flatus and abdomen nontender, will resume clear liquids Discharge Planning HOME 1-2 days Son: [phone] Chase Tapia MD January 17, 2018 09:13
[2018-01-17] MEDS: ENOXAPARIN SODIUM 30 MG/0.3 ML SYRINGE SQ SCH (11:19)
[2018-01-17] MEDS: HYDROmorphone HCL 2 MG TAB PO PRN (21:21)
[2018-01-17] MEDS: ATORVASTATIN 40 MG TAB PO SCH (21:21)
[2018-01-18] VITALS (17 sets, daily range): BP systolic 110–137; BP diastolic 55–68; PULSE 74–97; RESP 18–20; TEMP 97.5–98.6; O2SAT 93–98
[2018-01-18] MEDS: HYDROmorphone HCL 2 MG TAB PO PRN (03:25)
[2018-01-18] MEDS: LACTATED RINGER'S 1000 ML INJ 1,000 ML IV SCH (05:05)
[2018-01-18 05:57] LABS: CALCIUM 8.1 MG/DL (8.5-10.1); CREATININE 1.73 MG/DL (0.60-1.30)
[2018-01-18] MEDS ORDERED: POTASSIUM CHLORIDE 20 MEQ CONTROLLED RELEASE TAB PO ONE (06:30)
[2018-01-18] MEDS: HYDROCHLOROTHIAZIDE 25 MG TAB PO SCH (09:00)
[2018-01-18] MEDS: DOCUSATE SODIUM 50 MG/SENNA 8.6 MG TAB PO SCH (09:00)
[2018-01-18] MEDS: METOPROLOL TARTRATE 25 MG TAB PO SCH (09:00)
[2018-01-18] MEDS: ASPIRIN 81 MG CHEW TAB PO SCH (09:00)
[2018-01-18] MEDS: PANTOPRAZOLE SOD 40 MG DELAYED RELEASE TAB PO SCH (09:00)
[2018-01-18] MEDS: LISINOPRIL 20 MG TAB PO SCH (09:01)
--- NOTE | 2018-01-18 09:42 | PD.VS.PN ---
Subjective POD #: 8 Procedure(s): ax-fem-fem Subjective/Hospital Course 72/M POD 8 Pt sitting up in bed eating breakfast w/o c/o abdominal pain, nausea or vomiting Pt continues to ambulate with PT w/o difficult or walker + flatus Objective Vitals/I&O Date Time Temp Pulse Resp B/P (MAP) Pulse Ox O2 Delivery O2 Flow Rate FiO2 01/18/18 08:00 84 01/18/18 07:50 98.6 88 20 121/64 (83) 93 01/18/18 07:00 83 01/18/18 06:20 74 01/18/18 05:06 97 01/18/18 04:16 87 01/18/18 03:37 97.5 85 18 110/55 (73) 98 01/18/18 03:36 96 01/18/18 02:01 74 01/18/18 01:06 80 01/18/18 00:00 78 01/17/18 23:10 97.4 77 16 106/59 (75) 95 01/17/18 23:00 94 01/17/18 22:00 96 01/17/18 21:00 96 01/17/18 20:00 70 01/17/18 19:30 98.3 60 18 135/63 (87) 95 01/17/18 19:00 98 01/17/18 18:00 96 01/17/18 16:00 86 01/17/18 15:37 97.9 89 20 95/52 (66) 97 01/17/18 15:00 93 01/17/18 14:00 96 01/17/18 13:00 64 01/17/18 12:00 70 01/17/18 11:11 97.5 82 20 107/57 (74) 96 01/17/18 11:00 85 01/17/18 10:00 78 01/18/18 01/18/18 01/18/18 07:00 15:00 23:00 Intake Total 480 ml Output Total 600 ml Balance -120 ml Exam: GENERAL: A&OX3,NAD,GCS15 SKIN: Warm and dry/Incision to R Chest/groins intact GASTROINTESTINAL: Abdomen S/NT/Nondistended. MUSCULOSKELETAL: No cyanosis, or edema. RRR BS CTA LE warm w/ motor intact Laboratory Laboratory Tests Test 01/18/18 05:01 Blood Urea Nitrogen 50 Creatinine 1.73 Random Glucose 126 Calcium Level 8.1 Sodium Level 140 Potassium Level 3.1 Chloride Level 104 Carbon Dioxide Level 27.0 Anion Gap 9 Estimat Glomerular Filtration Rate 39 Assessment and Plan Assessment: (1) Ax fem fem bypass Plan POD#8 s/p ax-fem-fem From vascular standpoint, looks great and feet ok; ambulating; incisions ok Ileus with intravascular dehydration; continue MIVF; since passing flatus and abdomen nontender, will advance to a regular diet Plan Ok to advance to a regular diet D/C Planning for this afternoon, if tolerates regular diet Arranged out pt f/u in 2W with a surveillance AGNIESZKA Discussed and reviewed post operative care and management Alla Caputo NP [facility] [phone] Discharge Planning HOME today Son: [phone] Alla Caputo January 18, 2018 09:42
[2018-01-18] MEDS ORDERED: OXYC1CAP PO (09:47)
[2018-01-18] MEDS ORDERED: COLA100C5 PO (10:05)
--- NOTE | 2018-01-18 10:10 | PD.VS.DC ---
Discharge Summary Admission Date: Jan 10, 2018 at 06:51 Discharge Date: January 18, 2018 Admission Diagnosis: (1) Peripheral vascular disease Discharge Diagnosis: (1) Ax fem fem bypass Brief History from admission 72 yo male with B LE leg pain, short claudication and near pain Procedure(s): ax-fem-fem Significant Findings NERAL: A&OX3,NAD,GCS15 SKIN: Warm and dry/Incision to R Chest/groins intact GASTROINTESTINAL: Abdomen S/NT/Nondistended. MUSCULOSKELETAL: No cyanosis, or edema. RRR BS CTA LE warm w/ motor intact Laboratory Tests Test 01/16/18 17:11 01/17/18 03:54 01/18/18 05:01 Red Blood Count 3.30 MIL/MM3 (4.50-5.90) 2.80 MIL/MM3 (4.50-5.90) Hemoglobin 10.1 GM/DL (13.0-17.0) 8.6 GM/DL (13.0-17.0) Hematocrit 29.3 % (39.0-51.0) 24.8 % (39.0-51.0) Neutrophils (%) (Auto) 83.0 % (16.0-70.0) Lymphocytes (%) (Auto) 5.5 % (9.0-44.0) Monocytes (%) (Auto) 10.6 % (0.0-8.0) Neutrophils # (Auto) 8.3 TH/MM3 (1.8-7.7) Lymphocytes # (Auto) 0.5 TH/MM3 (1.0-4.8) Monocytes # (Auto) 1.1 TH/MM3 (0-0.9) Blood Urea Nitrogen 51 MG/DL (7-18) 57 MG/DL (7-18) 50 MG/DL (7-18) Creatinine 2.32 MG/DL (0.60-1.30) 2.23 MG/DL (0.60-1.30) 1.73 MG/DL (0.60-1.30) Random Glucose 191 MG/DL (74-106) 158 MG/DL (74-106) 126 MG/DL (74-106) Chloride Level 96 MEQ/L (98-107) Estimat Glomerular Filtration Rate 28 ML/MIN (>89) 29 ML/MIN (>89) 39 ML/MIN (>89) Calcium Level 8.4 MG/DL (8.5-10.1) 8.1 MG/DL (8.5-10.1) Potassium Level 3.1 MEQ/L (3.5-5.1) Hospital Course: 72/M with a hx of B LE leg pain, short claudication and near pain Pt S/P ax fem-fem bypass POD 1 c/o soreness christiano in sides otherwise ok feet ok deisy po no abdominal tenderness POD 2 c/o soreness christiano in sides no SOB persistently tachy and marginal UOP POD 3 Pt c/o nausea w/o vomiting this am Pt denied abdominal/chest pain or SOB Pt continues to c/o soreness christiano in sides POD 4 + anorexia but no emesis; deisy some po Pain better feet ok has been ambulating POD 5 better appetite working with PT POD 6 continues to get stronger feet feel great when he walks deisy po voiding POD 7 continues to ambulate with PT + emesis yesterday and KUB c/w ileus; e'lytes suggest significant dehydration + flatus today no abdominal pain MIVF started POD 8 Pt sitting up in bed eating (Clear liquid) breakfast w/o c/o abdominal pain, nausea or vomiting Pt continues to ambulate with PT w/o difficult or walker + flatus Abdomen S/NT Diet advanced Pt clear for d/c this afternoon with bowel regimen Arranged out pt f/u Allergies Coded Allergies Type Severity Reaction Last Updated Verified acetaminophen Allergy Severe Rash 01/10/18 Yes Recent Impressions Abdomen X-Ray 01/16/18 1621 Signed Impressions: Service Date/Time: Tuesday, January 16, 2018 16:31 - CONCLUSION: 1. Air-filled loops of small and large bowel suggesting possible diffuse ileus. Clinical correlation is recommended. 2. Mild degenerative changes and scoliosis of the lumbar spine. Chase Iqbal MD 01/16/18 01/16/18 01/17/18 01/17/18 01/18/18 01/18/18 06:00 18:00 06:00 18:00 06: 18:00 Intake Total 600 ml 240 ml 1312 ml 582 ml 480 ml Output Total 450 ml 300 ml 650 ml 900 ml 600 ml Balance 150 ml -60 ml 662 ml -318 ml -120 ml Intake Oral 600 ml 240 ml 100 ml 582 ml 480 ml IV Total 1212 ml Output Urine Total 400 ml 200 ml 650 ml 900 ml 600 ml Emesis 50 ml 100 ml # Voids 3 Laboratory Tests Test 01/16/18 17:11 01/17/18 03:54 01/18/18 05:01 White Blood Count 10.0 TH/MM3 7.3 TH/MM3 Red Blood Count 3.30 MIL/MM3 2.80 MIL/MM3 Hemoglobin 10.1 GM/DL 8.6 GM/DL Hematocrit 29.3 % 24.8 % Mean Corpuscular Volume 88.8 FL 88.4 FL Mean Corpuscular Hemoglobin 30.8 PG 30.8 PG Mean Corpuscular Hemoglobin Concent 34.6 % 34.8 % Red Cell Distribution Width 14.8 % 14.9 % Platelet Count 343 TH/MM3 275 TH/MM3 Mean Platelet Volume 8.2 FL 8.0 FL Neutrophils (%) (Auto) 83.0 % Lymphocytes (%) (Auto) 5.5 % Monocytes (%) (Auto) 10.6 % Eosinophils (%) (Auto) 0.5 % Basophils (%) (Auto) 0.4 % Neutrophils # (Auto) 8.3 TH/MM3 Lymphocytes # (Auto) 0.5 TH/MM3 Monocytes # (Auto) 1.1 TH/MM3 Eosinophils # (Auto) 0.1 TH/MM3 Basophils # (Auto) 0.0 TH/MM3 CBC Comment DIFF FINAL Differential Comment Blood Urea Nitrogen 51 MG/DL 57 MG/DL 50 MG/DL Creatinine 2.32 MG/DL 2.23 MG/DL 1.73 MG/DL Random Glucose 191 MG/DL 158 MG/DL 126 MG/DL Calcium Level 9.1 MG/DL 8.4 MG/DL 8.1 MG/DL Sodium Level 137 MEQ/L 140 MEQ/L 140 MEQ/L Potassium Level 3.6 MEQ/L 3.7 MEQ/L 3.1 MEQ/L Chloride Level 96 MEQ/L 102 MEQ/L 104 MEQ/L Carbon Dioxide Level 31.2 MEQ/L 30.1 MEQ/L 27.0 MEQ/L Anion Gap 10 MEQ/L 8 MEQ/L 9 MEQ/L Estimat Glomerular Filtration Rate 28 ML/MIN 29 ML/MIN 39 ML/MIN Orders Procedure Category Date Status Time ^ Other Nursing Orders RAZA 01/15/18 In Process 15:54 Pantoprazole MED 01/16/18 In Process (Protonix) 09:00 Fleets Enema (Adult) MED 01/16/18 Complete (Fleets Enema (Adul 15:00 Abdomen, Kub Only RADDIAG 01/16/18 Resulted 16:21 Complete Blood Count LAB 01/16/18 Complete With Diff 16:21 Basic Metabolic Panel LAB 01/16/18 Complete (Bmp) 16:21 Basic Metabolic Panel LAB 01/17/18 Complete (Bmp) 06:00 Cbc No Diff, Includes LAB 01/17/18 Complete Plts 06:00 Lactated Ringer's MED 01/16/18 In Process 1000 Ml Inj (Lr 1000 M 16:56 Diet Npo Except Meds DIET 01/16/18 Complete Dinner Basic Metabolic Panel LAB 01/18/18 Complete (Bmp) 06:00 Diet Clear Liquid DIET 01/17/18 Complete Breakfast Potassium Chloride MED 01/18/18 Complete (Kcl) 06:30 Vascular Access Team RAZA 01/18/18 In Process Consult/P 06:24 Vascular Poc IMGUS 01/18/18 Taken Ultrasound Diet Regular Basic DIET 01/18/18 Transmitted Breakfast Attending Discharge DISCHARGE 01/18/18 Transmitted Order 09:47 Vital Signs Date Time Temp Pulse Resp B/P (MAP) Pulse Ox O2 Delivery O2 Flow Rate FiO2 01/18/18 08:00 84 01/18/18 07:50 98.6 88 20 121/64 (83) 93 01/18/18 07:00 83 01/18/18 06:20 74 01/18/18 05:06 97 01/18/18 04:16 87 01/18/18 03:37 97.5 85 18 110/55 (73) 98 01/18/18 03:36 96 01/18/18 02:01 74 01/18/18 01:06 80 01/18/18 00:00 78 01/17/18 23:10 97.4 77 16 106/59 (75) 95 01/17/18 23:00 94 01/17/18 22:00 96 01/17/18 21:00 96 01/17/18 20:00 70 01/17/18 19:30 98.3 60 18 135/63 (87) 95 01/17/18 19:00 98 01/17/18 18:00 96 01/17/18 16:00 86 01/17/18 15:37 97.9 89 20 95/52 (66) 97 01/17/18 15:00 93 01/17/18 14:00 96 01/17/18 13:00 64 01/17/18 12:00 70 01/17/18 11:11 97.5 82 20 107/57 (74) 96 01/17/18 11:00 85 01/17/18 10:00 78 01/17/18 09:00 104 01/17/18 08:00 112 01/17/18 07:34 97.8 97 20 104/55 (71) 94 01/17/18 07:00 92 01/17/18 06:04 98 01/17/18 05:10 109 01/17/18 04:48 97.8 102 120/58 (78) 95 01/17/18 04:00 60 01/17/18 03:05 102 01/17/18 02:15 100 01/17/18 01:19 110 01/17/18 00:10 107 01/16/18 23:55 98.3 60 87/50 (62) 91 01/16/18 23:00 99 01/16/18 22:17 100 01/16/18 21:00 94 01/16/18 20:00 109 01/16/18 19:00 97.6 66 105/52 (69) 92 01/16/18 19:00 108 01/16/18 18:00 106 01/16/18 17:00 98 01/16/18 16:00 106 01/16/18 15:00 98.6 97 104/66 (79) 95 01/16/18 15:00 97 01/16/18 14:02 104 01/16/18 13:00 96 01/16/18 12:00 94 01/16/18 11:00 91 01/16/18 11:00 98.1 86 125/70 (88) 93 01/16/18 10:00 96 01/16/18 09:00 105 01/16/18 08:00 82 01/16/18 07:00 98.0 102 126/69 (88) 92 01/16/18 07:00 105 01/16/18 07:00 92 Room Air 01/16/18 06:08 102 01/16/18 05:08 69 01/16/18 05:05 98.0 61 155/71 (99) 93 01/16/18 04:01 103 01/16/18 03:21 99 01/16/18 02:40 99 01/16/18 01:14 100 01/16/18 00:38 98 01/16/18 00:00 97.9 84 125/63 (83) 92 01/15/18 23:00 84 01/15/18 22:20 116 01/15/18 22:03 21 01/15/18 21:00 111 01/15/18 20:00 66 01/15/18 19:00 68 01/15/18 19:00 93 Room Air 01/15/18 19:00 98.5 68 146/68 (94) 93 01/15/18 18:00 109 01/15/18 17:00 104 01/15/18 16:00 110 01/15/18 15:00 105 01/15/18 15:00 98.2 99 20 116/56 (76) 94 01/15/18 14:00 107 01/15/18 13:00 98 01/15/18 12:00 104 01/15/18 11:00 97.8 62 19 132/58 (82) 93 01/15/18 11:00 93 01/15/18 10:00 92 Discharge Condition: Good Discharge Disposition: Discharge Home Discharge Instructions: DIET You may resume your diabetic diet ACTIVITY Activities as tolerated You may shower then pat dry incision sites NO TUB BATHS until your incisions are fully healed WOUND CARE Leave your incisions open to air DO NOT apply any creams or ointments to your incision as it may loosen the surgical glue DO not apply cologne or perfumes as it may irritate your incision Call to report an increase in redness, drainage or swelling MEDICATIONS You may resume your daily home medications You were prescribed a narcotic pain medication- This may cause constipation- Take with an over the counter stool softener You were prescribed a narcotic pain medication- This may cause drowsiness- Do not drive while taking this medication Any questions or concerns: Call [facility] at [facility] [phone] Alla Caputo January 18, 2018 10:10
--- NOTE | 2018-01-18 10:13 | HHI.FF ---
Face to Face Verification Diagnosis: (1) Ax fem fem bypass (2) Peripheral vascular disease Physical Therapy Order: Evaluate and Treat, Improve ambulation, Strength and gait training I have seen patient Denis Adams on 01/18/18. My clinical findings support the need for the requested home health care services because: Pt medically clear for d/c and will benefit from out pt PT for optimal post operative healing and strengthening Ltd mobility - disease progression High risk of falls I certify that my clinical findings support that this patient is homebound because:Pt medically clear for d/c and will benefit from out pt PT for optimal post operative healing and strengthening Post-op weakness Unsteady gait/balance Alla Caputo January 18, 2018 10:13
[2018-01-18] MEDS: ENOXAPARIN SODIUM 30 MG/0.3 ML SYRINGE SQ SCH (11:27)
== END 2018-01-18 14:49 | disposition home health service (06) | DRG 253 ==
LOC: HSDI 06:51 → HCVI 12:07 → HCPC 01-12 09:12
PROVIDERS: ADMIT Surgery; ATTEND Surgery
PROC: 03150J6 Bypass Right Axillary Artery to Right Upper Leg Artery with Synthetic Substitute, Open Approach (ICD-10-PCS; principal; 2018-01-10 09:12)
PROC: 041K0JJ Bypass Right Femoral Artery to Left Femoral Artery with Synthetic Substitute, Open Approach (ICD-10-PCS; 2018-01-10 09:12)
DX: E11.51 Type 2 diabetes mellitus with diabetic peripheral angiopathy without gangrene (principal); K56.7 Ileus, unspecified; E86.0 Dehydration; I70.213 Atherosclerosis of native arteries of extremities with intermittent claudication, bilateral legs; I10 Essential (primary) hypertension; I77.1 Stricture of artery; Z79.84 Long term (current) use of oral hypoglycemic drugs
CPT/HCPCS: 74018; 76937; 80048; 85025; 85027; 85610; 86850; 86900; 86901; 93005; 94664; C1768; J0690; J1100; J1644; J1650; J2270; J2370; J2405; J2710; J2720; J3010; J7030; J7120